=== PATIENT | female | born 1995 | race Caucasian/White ===

== ENCOUNTER 2024-04-03 15:19 | Emergency (ER) | payer OTHER ==
[~2024-04-03] VITALS: Ht 154.9 cm; Wt 70.3 kg
[2024-04-03] MEDS: IV NS 0.9% 1,000 ML BAG IV ONE (15:50)
[2024-04-03 15:55] LABS: BASOPHILS % (AUTO) 0.3 % (0.0-2.0); EOSINOPHILS % (AUTO) 0.5 % (0.0-6.0); HEMATOCRIT 42 % (33-45); HEMOGLOBIN 14.1 g/dL (11.5-14.8); MEAN CORPUSCULAR HEMOGLOBIN 29 PG (26.0-33.0); MEAN CORPUSCULAR HGB CONC 34 g/dl (31.0-36.0); MEAN CORPUSCULAR VOLUME 85 fL (82-100); MONOCYTES # (AUTO) 0.5 K/uL (0.1-1.30); MONOCYTES % (AUTO) 4.9 % (2.0-12.0); NEUTROPHILS # (AUTO) 8.5 K/uL (1.8-8.9); NEUTROPHILS % (AUTO) 84.3 % (43.0-81.0); PLATELET COUNT (AUTO) 214 K/uL (150-450); RED CELL DISTRIBUTION WIDTH 13.1 % (11.5-15.0); WHITE BLOOD COUNT (AUTO) 10.1 K/uL (4.3-11.0)
[2024-04-03 16:04] LABS: CALCIUM, SERUM 9.7 mg/dL (8.5-10.1); POTASSIUM 3.6 mmol/L (3.5-5.1)
[2024-04-03 16:10] LABS: BILIRUBIN,DIRECT 0.2 mg/dL (0.0-0.2); BILIRUBIN,TOTAL 0.7 mg/dL (0.2-1.0); TOTAL PROTEIN, SERUM 8.5 g/dL (6.4-8.2)
[2024-04-03] MEDS ORDERED: ONDANSETRON HCL/PF 4 MG/2 ML VIAL ONE (16:42)
[2024-04-03] MEDS ORDERED: MAG HYDROX/AL HYDROX/SIMETH 30 ML UDC ONE (16:42)
[2024-04-03] MEDS ORDERED: PANTOPRAZOLE 40 MG VIAL ONE (16:42)
[2024-04-03] MEDS ORDERED: MORPHINE SULFATE INJ 4 MG/ML DISP.SYRIN ONE (16:43)
[2024-04-03] MEDS: ONDANSETRON HCL/PF 4 MG/2 ML VIAL IVP ONE (16:50)
[2024-04-03] MEDS: MORPHINE SULFATE INJ 2 MG/ML DISP.SYRIN IV ONE ×2 (16:50→20:06)
[2024-04-03] MEDS: MAG HYDROX/AL HYDROX/SIMETH 30 ML UDC PO ONE (16:51)
[2024-04-03] MEDS: PANTOPRAZOLE 40 MG VIAL IV ONE (16:51)
[2024-04-03 17:16] LABS: APPEARANCE,URINE Clear (CLEAR); BILIRUBIN,URINE Negative (NEGATIVE); BLOOD, URINE Trace-intact Ery/uL (NEGATIVE); COLOR,URINE YELLOW (YELLOW); KETONES,URINE >=160 mg/dL (NEGATIVE); LEUKOCYTE ESTERASE ,URINE Negative (NEGATIVE); NITRITE, URINE Negative (NEGATIVE); PROTEIN,URINE 30 mg/dl (NEGATIVE); UGLUCOSE Negative (NEGATIVE); UROBILINOGEN,URINE 0.2 EU/dL (0.2)
[2024-04-03 17:17] LABS: PREGNANCY TEST URINE QUAL NEGATIVE (NEGATIVE)
[2024-04-03 17:39] LABS: ADD URINE CULTURE NO; BACTERIA,URINE 1+ /HPF (None Seen); WBC,URINE 0-2 /HPF (0-3)
[2024-04-03 17:40] LABS: MUCUS,URINE Few /LPF (None Seen)
[2024-04-03] MEDS ORDERED: MORPHINE SULFATE INJ 2 MG/ML DISP.SYRIN ONE (20:05)
[2024-04-03] MEDS ORDERED: IBUP-1955 PO (20:21)
[2024-04-03] MEDS ORDERED: ONDA4TAB5 PO (20:21)
[2024-04-03] MEDS ORDERED: FAMO20TA80 PO (20:21)
[2024-04-03] MEDS ORDERED: ACET-2605 PO (20:21)
[2024-04-03 20:36] VITALS: BP 131/80; TEMP 98.7; O2SAT 99
== END 2024-04-03 20:37 | disposition home or self-care (01) ==
LOC: ER 15:23
DX: R10.13 Epigastric pain (principal); R11.2 Nausea with vomiting, unspecified; R19.7 Diarrhea, unspecified
CPT/HCPCS: 99285; 96374; 96361; 96375; 96376; 74176; 85025; 80048; 83690; 80076; 84703; 81001; 36415; J2270 ×2; J2405; J7030; J2470